=== PATIENT | male | born 1950 | race Caucasian/White ===

== ENCOUNTER 2019-11-08 12:37 | Observation (INO) | payer OTHER, MEDICARE ==
[~2019-11-08] VITALS: Ht 172.7 cm; Wt 99.5 kg
[2019-11-08 12:37] VITALS: BP 104/55
[~2019-11-08 12:37] MED LIST: BABY ASPIRIN81 MG OR; COZAAR50 MG OR; GLUCOPHAGE1000 MG OR; HYDROCHLOROT12.5 MG OR; LOPID600 MG OR; PAXIL20 MG OR
--- NOTE | 2019-11-08 12:37 | NUR ---
PATIENT TO ROOM VIA EMS AND PHYSICIAN NOTIFIED OF PATIENT STATUS
[2019-11-08 12:38] VITALS: BP 92/53
[2019-11-08 12:40] VITALS: BP 93/50
--- NOTE | 2019-11-08 13:00 | NUR ---
PT STATES FELLING DIZZINESS SINCE YESTERDAY, PT DENIES ANY OTHER SYMPTOMS OR PAIN. HE STATES HAVING PAIN YESTERDAY IN THE ABD BUT IS NO LONGER PRESENT. NIH 0. WILL CONTINUE TO MONITOR.
[2019-11-08 13:09] LABS: IMMATURE GRANULOCYTES 0.2 % (0.0-5.0); MEAN CORPUSCULAR HGB 29.9 pG CALC (26.0-32.0); MEAN CORPUSCULAR HGB CONC 33.2 g/dL CAL (32.0-36.0); NEUT# 4.72 thou/uL (1.82-7.42); RED BLOOD COUNT 4.12 mill/uL (4.70-6.10); RED CELL DISTRI WIDTH 13.6 % (11.5-15.5)
[2019-11-08 13:12] LABS: HEMATOCRIT 37.1 % (39.0-50.0); HEMOGLOBIN 12.3 g/dl (14.0-18.0)
[2019-11-08 13:35] LABS: ALKALINE PHOSPHATASE 57 u/l (38-126); ANION GAP 12 (6-22 (CALC)); BILIRUBIN, TOTAL 0.4 mg/dL (0.0-1.4); BUN 45 mg/dL (8-23); BUN/CREATININE RATIO 27 (12-20 (CALC)); CARBON DIOXIDE 23 mmol/l (22-30); CHLORIDE 102 mmol/l (95-108); CREATININE 1.7 mg/dL (0.7-1.3); GFR 40 ML/MIN (>=60 (CALC)); GFR FOR AFR.AMER. 48 ML/MIN (>=60 (CALC)); LIPASE 45 u/l (23-300); MAGNESIUM 2.3 mg/dL (1.6-2.3); POTASSIUM 4.8 mmol/l (3.5-5.1); SGOT/AST 32 u/l (19-48); SODIUM 133 mmol/l (137-146)
[2019-11-08] MEDS ORDERED: GABAPENTIN800 MG PO (13:52)
[2019-11-08] MEDS ORDERED: RESTORIL15 M1 PO (13:53)
[2019-11-08] MEDS ORDERED: CYMBALTA30 MG PO (13:53)
[2019-11-08] MEDS ORDERED: LOPRESSOR25 M1 PO (13:54)
[2019-11-08] MEDS ORDERED: LISINOPRIL20 M1 PO (13:55)
[2019-11-08] MEDS ORDERED: TAMSULOSIN HCL0.4 MG PO (13:55)
[2019-11-08] MEDS ORDERED: SPIRIVA HANDIH18 MCG (13:56)
[2019-11-08] MEDS ORDERED: LASIX 20 MG TAB20 MG PO (13:56)
[2019-11-08] MEDS ORDERED: ISOSORBIDE MON120 MG PO (13:56)
[2019-11-08] MEDS ORDERED: ALBUTEROL108 MCG/AC (13:57)
[2019-11-08] MEDS ORDERED: ATORVASTATIN CA80 MG PO (13:57)
[2019-11-08] MEDS ORDERED: INSULIN (13:58)
--- NOTE | 2019-11-08 13:59 | NUR ---
UNABLE TO VERIFY ALL MEDICATION DOSAGES AND PHARMACY CONSULT PLACED
[2019-11-08 14:05] LABS: ALBUMIN 3.4 g/dL (3.2-5.0); TOTAL PROTEIN 6.4 g/dL (6.3-8.2); TSH, 3RD GENERATION 2.82 uIU/mL (0.47 - 4.68)
--- NOTE | 2019-11-08 14:16 | NUR ---
MED REC CONSULT RECEIVED FROM ER. PT IS A , FAXED RELEASE OF INFORMATION OFFICE FOR ACTIVE MED LIST FOR PT. THEIR FAX # IS [phone]
--- NOTE | 2019-11-08 14:39 | NUR ---
PT WAS ABLE TO GIVE URINE AFTER HELPING HER TO THE BEDSIDE CAMMODE.
--- NOTE | 2019-11-08 15:30 | NUR ---
PT NOTIFIED OF PENDING ADMISSION. PT VERBALIZED UNDERSTANDING. CALL LIGHT WITHIN REACH
--- NOTE | 2019-11-08 16:03 | NUR ---
GAVE REPORT TO REY
--- NOTE | 2019-11-08 16:07 | NUR ---
PHONED DR DEGROOT AND WITH PT BEING ADMITTED FOR PNEUMONIA WILL ORDER COVID SWAB
--- NOTE | 2019-11-08 16:10 | NUR ---
PT TRANSPORTED TO [facility] SURG STABLE AND IN NO DISTRESS. PT CARE ASSUMED TO DARIA Admission Note Report Given to: Transported by: Wheelchair X Stretcher Transported with: X Nurse Transporter X Patent IV O2 X Occupational Therapist Assistant Location: ICU X MS2
--- NOTE | 2019-11-08 16:13 | NUR ---
PT TO MED SURG ROOM 261 VIA STRETCHER ACCOMPANIED BY ER NURSE. PT ABLE TO TRANSFER SELF TO BED. ADMISSION ASSESSMENT COMPLETED AT THIS TIME. IV PATENT X2. PT IS ALERT AND ORIENTED X3. ORIENTED PT TO ROOM AND UNIT. CALL LIGHT IN REACH. WILL CONTINUE TO MONITOR.
[2019-11-08 16:29] VITALS: BP 112/55
[2019-11-08 17:20] LABS: URINE BILIRUBIN - DIPSTICK NEGATIVE (NEGATIVE); URINE BLOOD DIPSTICK NEGATIVE (NEGATIVE); URINE COLOR YELLOW; URINE GLUCOSE - DIPSTICK NEGATIVE (NEGATIVE); URINE KETONE NEGATIVE (NEGATIVE); URINE LEUK ESTERASE NEGATIVE (NEGATIVE); URINE NITRITE - DIPSTICK NEGATIVE (Negative); URINE PROTEIN - DIPSTICK NEGATIVE (NEG-TRACE); URINE SPECIFIC GRAVITY <=1.005; URINE UROBILINOGEN - DIPSTICK 0.2 E.U./dL (0.2)
[2019-11-08 18:35] VITALS: BP 151/71
--- NOTE | 2019-11-08 21:22 | NUR ---
PT MEDICATED ORDERS PROVIDE. NO S/O DISTRESS NOTED. PT TALKING ABOUT WANTING A CIGARETTE, DENIES NEED FOR NICOTINE PATCH AT THIS TIME. ASSESSMENT COMPLETED AT THIS TIME.
--- NOTE | 2019-11-08 22:25 | NUR ---
PT SLEEPING AT THIS TIME. NO S/O DISTRESS NOTED. LIGHTS ARE OFF, TV ON LOW.
[2019-11-08 23:50] VITALS: BP 129/67
--- NOTE | 2019-11-08 23:54 | NUR ---
PT MEDICATED ORDERS PROVIDE. DENIES ANY OTHER NEEDS. PT WAS SLEEPING I ENTERED THE ROOM. HE SAID HE WILL TAKE THIS DOSE OF ALBUERAL ORDERED Q6 SCHEDULED, BUT THAT HE NORMALLY TAKES THIS PRN. WILL NOTIFY PHYSICIAN FOR MED SCHEDULE CHANGE.
--- NOTE | 2019-11-09 02:15 | NUR ---
PT SLEEPING, NO S/O DISTRESS NOTED AT THIS TIME. CALL LIGHT W/IN REACH.
[2019-11-09 03:30] VITALS: BP 126/65
[2019-11-09 04:35] LABS: HEMATOCRIT 39.4 % (39.0-50.0); HEMOGLOBIN 13.1 g/dl (14.0-18.0); IMMATURE GRANULOCYTES 0.3 % (0.0-5.0); MEAN CELL VOLUME 90.4 fL CALC (80.0-100.0); MEAN CORPUSCULAR HGB CONC 33.2 g/dL CAL (32.0-36.0); NEUT# 4.77 thou/uL (1.82-7.42); RED BLOOD COUNT 4.36 mill/uL (4.70-6.10); RED CELL DISTRI WIDTH 13.7 % (11.5-15.5)
[2019-11-09 04:47] LABS: ANION GAP 11 (6-22 (CALC)); BUN 38 mg/dL (8-23); BUN/CREATININE RATIO 30 (12-20 (CALC)); CARBON DIOXIDE 23 mmol/l (22-30); CHLORIDE 108 mmol/l (95-108); CREATININE 1.3 mg/dL (0.7-1.3); GFR 54 ML/MIN (>=60 (CALC)); GFR FOR AFR.AMER. > 60 ML/MIN (>=60 (CALC)); POTASSIUM 4.5 mmol/l (3.5-5.1); SODIUM 137 mmol/l (137-146)
[2019-11-09 08:00] VITALS: BP 134/71
--- NOTE | 2019-11-09 09:00 | NUR ---
PT SEEN AWAKE, ALERTL, ORIENTED X 3. LUNGS CLEAR, RA. NO COMPLAINTS OF DIZZINESS OR SHORTNESS OF BREATH. PT AMBULATORY TO BR WITHOUT DIFFICULTY.
[2019-11-09 09:17] VITALS: BP 143/66
[2019-11-09 09:18] VITALS: BP 121/68; BP 158/68
[2019-11-09] MEDS ORDERED: PAXIL40 MG PO (09:52)
[2019-11-09 11:00] VITALS: BP 122/66
--- NOTE | 2019-11-09 12:00 | NUR ---
PT HAS BEEN SEEN BY DR DEGROOT THIS MORNING, DISCHARGED TO HOME. PT VERBALIZES UNDERSTANDING OF DC INSTRUCTIONS, AMBULATES TO LOBBY ACCOMPANIED BY SHEET TAKER. PT LEAVES [facility] IN STABLE CONDITION, THANKS STAFF HE LEAVES.
--- NOTE | 2019-11-12 09:21 | NUR ---
CALLED AND SPOKE WITH PATIENT AND GAVE NEGATIVE COVID-19 RESULTS. PATIENT VERBALIZED UNDERSTANDING OF RESULTS AND THANKED ME FOR CALL.
== END 2019-11-09 12:05 | disposition home or self-care (01) | DRG 312 ==
LOC: ED 12:37 → ED-I 14:34 → ED 15:08 → ED-I 15:09 → MS2 15:16
PROVIDERS: Family Medicine; ADMIT Internal Medicine; ATTEND Internal Medicine
DX: I95.1 Orthostatic hypotension (principal); E86.0 Dehydration; I10 Essential (primary) hypertension; E11.9 Type 2 diabetes mellitus without complications; I25.10 Atherosclerotic heart disease of native coronary artery without angina pectoris; F17.200 Nicotine dependence, unspecified, uncomplicated; I25.2 Old myocardial infarction; Z79.4 Long term (current) use of insulin; Z20.828 Contact with and (suspected) exposure to other viral communicable diseases
CPT/HCPCS: G0378

== ENCOUNTER 2024-07-10 14:16 | Emergency (ER) | payer OTHER, MEDICARE ==
[~2024-07-10] VITALS: Ht 172.7 cm; Wt 88.9 kg
[~2024-07-10 14:16] MED LIST changes: +ALBUTEROL108 MCG/AC; +ATORVASTATIN CA80 MG PO; +CYMBALTA30 MG PO; +GABAPENTIN800 MG PO; +INSULIN; +ISOSORBIDE MON120 MG PO; +LASIX 20 MG TAB20 MG PO; +LISINOPRIL20 M1 PO; +LOPRESSOR25 M1 PO; +PAXIL40 MG PO; +RESTORIL15 M1 PO; +SPIRIVA HANDIH18 MCG; +TAMSULOSIN HCL0.4 MG PO
[2024-07-10 14:26] VITALS: BP 142/68
[2024-07-10 14:30] VITALS: BP 136/68
[2024-07-10 14:40] LABS: URINE BLOOD DIPSTICK Large (NEGATIVE); URINE COLOR Bloody; URINE GLUCOSE - DIPSTICK Negative (NEGATIVE); URINE KETONE Negative (NEGATIVE); URINE LEUK ESTERASE Negative (NEGATIVE); URINE NITRITE - DIPSTICK Negative (Negative); URINE PROTEIN - DIPSTICK >=300 mg/dL (NEG-TRACE); URINE UROBILINOGEN - DIPSTICK 0.2 E.U./dL (0.2)
[2024-07-10 14:41] LABS: URINE BACTERIA FEW hpf; URINE RBC TNTC RBC/hpf (0-5)
[2024-07-10 15:01] VITALS: BP 129/62
[2024-07-10 15:16] LABS: BASO% 0.6 % (0-3); HEMATOCRIT 37.7 % (39.0-50.0); HEMOGLOBIN 12.4 g/dl (14.0-18.0); IMMATURE GRANULOCYTES 0.2 % (0.0-5.0); LYMPH% 29.7 % (15-41); MEAN CELL VOLUME 93.8 fL CALC (80.0-100.0); MEAN CORPUSCULAR HGB 30.8 pG CALC (26.0-32.0); MEAN CORPUSCULAR HGB CONC 32.9 g/dL CAL (32.0-36.0); NEUT# 7.71 thou/uL (1.82-7.42); NEUT% 61.5 % (42-76); RED BLOOD COUNT 4.02 mill/uL (4.70-6.10); RED CELL DISTRI WIDTH 13.5 % (11.5-15.5)
[2024-07-10 15:32] LABS: ALBUMIN 3.6 g/dL (3.2-5.0); BILIRUBIN, TOTAL 0.4 mg/dL (0.2-1.3); CREATININE 1.1 mg/dL (0.7-1.3); POTASSIUM 4.2 mmol/l (3.5-5.1); TOTAL PROTEIN 6.5 g/dL (6.3-8.2)
[2024-07-10] MEDS ORDERED: SULFAMETHOXAZOLE W/TRIMETHOPRI 1 COMBO TAB PO ONE (16:25)
[2024-07-10] MEDS ORDERED: BACTRIM DS1 TAB PO (16:28)
[2024-07-10 17:13] VITALS: BP 129/62
== END 2024-07-10 17:14 | disposition home or self-care (01) | DRG 690 ==
LOC: ED 14:16
PROVIDERS: Nurse Practitioner
DX: N39.0 Urinary tract infection, site not specified (principal); R31.9 Hematuria, unspecified; I10 Essential (primary) hypertension; E11.9 Type 2 diabetes mellitus without complications; E78.00 Pure hypercholesterolemia, unspecified; Z79.4 Long term (current) use of insulin; F17.200 Nicotine dependence, unspecified, uncomplicated